=== PATIENT | male | born 1950 | race Caucasian/White ===

== ENCOUNTER → 2016-05-14 | Outpatient (CLI) | payer MEDICARE, OTHER ==
[~2016-05-14] MED LIST: ADVAIR 250-501 EACH INH; ADVIL; ASPIRIN LO-DOSE81 MG PO; BUMEX1 MG PO; BUSPAR10 MG PO; CELEXA40 MG PO; CENTRUM SILVER1 TAB PO; CLARITIN10 MG PO; CORDARONE,PACE200 MG PO; COREG12.5 MG PO; COREG25 MG PO; DIOVAN80 MG PO; GLUCOPHAGE500 MG PO; K-TAB 10MEQ10 MEQ PO; LANOXIN250 MCG PO; LASIX40 MG PO; MIRAPEX0.5 MG PO; PREVACID30 M1 PO; SOTALOL120 MG PO; SPIRIVA HANDIHA1 KIT INH; TOPICORT 0.25%15 GM TOP; TOPROL XL25 MG PO; TRANDOLAPRIL PO; TRIAMCINOLONE 080 GM TOP; TUMS REGULAR ST1 TAB PO; TYLENOL/COD#31 TAB PO; VERAPAMIL PO; VICKS SINEX15 M1 NOSE; VITAMIN D-32000 UNIT PO; WELLBUTRIN XL150 M1 PO; ZYLOPRIM100 MG PO
--- NOTE | ~2016-05-14 | ECHO ---
Transthoracic Echocardiography Report (TTE) Demographics Patient Name LEVON FORD Date of Study 05/14/2016 Patient Number [id number] Visit Number [id number] Date of 1950 Room Number Accession Number [id number] Gender Male Age 65 year(s) Referring Wai Chapin MD Principal Scientist Tsering Zhu Physician Kaitlynn Stubbs Physician Interpreting Steve Diallo MD Online Project Manager Physician Supervising Ordering Physician Kaitlynn Carcamo MD/ARLENE WILLIS Nurse Stress Food Photographer Conclusions Contractility Score Summary Global Left Ventricular Hypokinesis was noted. Summary The estimated left ventricular ejection fraction is 25%. The left ventricle is severly dilated . Mild concentric left ventricular hypertrophy. Diastolic assessment reveals Grade III restrictive diastolic dysfunction. Definity was administered to better delineate endocardial borders. Mild to moderately dilated right ventricle. The left atrium is mildly dilated. Moderate-severe mitral regurgitation by color Doppler. Mild-moderate tricuspid regurgitation by color Doppler. There is moderate pulmonary hypertension. The pulmonary pressure (RVSP) is 57 mmHg. Trivial anterior pericardial effusion. Procedure Type of Study TTE procedure:2D Echocardiogram, M-Mode, Doppler , Color Doppler, Contrast study, Echo with Contrast. Procedure Date Date: 05/14/2016 Start: 10:26 AM Study Location: Echo Lab Technical Quality: Adequate visualization Indications:Congestive heart failure. Appropriate Use Criteria: 9 Patient Status: Routine Contrast Medium: Definity. Amount - 3 ml HR: 93 bpm BP: 141/77 mmHg M-Mode/2D Measurements LV Diastolic Dimension: 7.27 cm LV Systolic Dimension: 6.47 cm LV Septum Diastolic: 1.07 cm LV PW Diastolic: 1.11 cm AO Root Dimension: 3.2 cm Cardiac Output: 3.19 l/min AV Cusp Separation: 1.8 cm RV Diastolic Dimension: 3.66 cm LVOT: 1.8 cm LVOT VTI: 13.5 cm RV Base: 4.48 cm LV Stroke volume: 34.34 ml RV Length: 7.81 cm TAPSE: 2.53 cm TDI-S': 17.3 cm/s Doppler Measurements AV Peak Velocity: 1.88 m/s MV Peak E-Wave: 0.88 m/s AV Peak Gradient: 14.14 mmHg MV Peak A-Wave: 1.16 m/s AV Mean Gradient: 8 mmHg MV E/A Ratio: 0.76 LVOT Peak Velocity: 0.81 m/s MV Deceleration Time: 187 msec TR Velocity:3.66 m/s PV Peak Velocity: 1.46 m/s TR Gradient:53.58 mmHg PV Peak Gradient: 8.53 mmHg Estimated RAP:3 mmHg Estimated PASP: 56.58 mmHg Estimated RVSP: 57 mmHg A' Septal Velocity: 0.09 m/s E' Septal Velocity: 0.04 m/s A' Lateral Velocity: 0.11 m/s E' Lateral Velocity: 0.09 m/s Findings Left Ventricle The left ventricle is severly dilated . Mild concentric left ventricular hypertrophy. Diastolic assessment reveals Grade I diastolic dysfunction. Definity was administered to better delineate endocardial borders. Right Ventricle Mild to moderately dilated right ventricle. Normal right ventricular function. Device lead noted in the right ventricle. Left Atrium The left atrium is moderately dilated. Right Atrium Normal right atrial size. IVC measures 1.77 cm with inspiratory collapse. Mitral Valve Mild mitral annular calcification. Moderate-severe mitral regurgitation by color Doppler. Aortic Valve The aortic valve is mildly sclerotic. Tricuspid Valve Mild-moderate tricuspid regurgitation by color Doppler. There is moderate pulmonary hypertension. The pulmonary pressure (RVSP) is 57 mmHg. Pulmonic Valve Trivial pulmonic valve regurgitation by color Doppler. Pericardial Effusion No evidence of pericardial effusion. Miscellaneous Visualized portions of the aortic root and ascending aorta appear normal in size. Pleural Effusion No evidence of pleural effusion. Contractility Score LV regional wall motion:(0-Non visualized 1-Normal 2-Hypokinesis 3-Akinesis 4-Dyskinesis 5-Aneurysm) Signature dtt: Yoel Wilson (cardio) dtd: 05/14/16 1026 Physician Self Edit
== END | disposition disaster alternative care site (69) ==
LOC: GCAR 10:16
DX: I50.9 Heart failure, unspecified (principal); I34.0 Nonrheumatic mitral (valve) insufficiency; I07.1 Rheumatic tricuspid insufficiency; I31.3 Pericardial effusion (noninflammatory); I27.2 Other secondary pulmonary hypertension; I51.89 Other ill-defined heart diseases
CPT/HCPCS: C8929; Q9957

== ENCOUNTER → 2016-09-19 | Outpatient (CLI) | payer MEDICARE, OTHER | END | disposition disaster alternative care site (69) | LOC: GAMB 13:37 | DX: I50.9 Heart failure, unspecified (principal); Z79.899 Other long term (current) drug therapy | CPT/HCPCS: A0422; A0425; A0427 ==